=== PATIENT | female | born 1990 | race Hispanic/Latino ===

== ENCOUNTER 2018-04-21 12:21 | Outpatient (CLI) | payer OTHER ==
--- NOTE | 2018-04-21 13:54 | ULT ---
THYROID ULTRASOUND: Date: 04/21/18 COMPARISON: None. HISTORY: Thyromegaly. TECHNIQUE: Multiplanar Worthy scale and color Doppler images were obtained of a thyroid ultrasound. FINDINGS: The thyroid lobes are homogeneous in appearance without cysts or nodules. Thyroid lobes measure 4.0 a nd 4.6 cm in length on the right and left, respectively. IMPRESSION: Unremarkable thyroid ultrasound. POS: [facility]
== END 2018-04-21 12:22 | disposition home or self-care (01) ==
LOC: SCSULT 12:21
PROVIDERS: ATTEND Nurse Practitioner Family
DX: E01.0 Iodine-deficiency related diffuse (endemic) goiter (principal)
CPT/HCPCS: 76536